=== PATIENT | male | born 1990 | race American Indian/Alaskan Native ===

== ENCOUNTER 2024-09-16 19:27 | Emergency (ER) | payer OTHER ==
[~2024-09-16] VITALS: Ht 193 cm; Wt 100.0 kg
[2024-09-16] MEDS ORDERED: DEPAKOTE250 MG PO (20:46)
[2024-09-16] MEDS ORDERED: BENADRYL ALLERG50 MG PO (20:46)
[2024-09-16] MEDS ORDERED: DEPAKOTE500 MG PO (20:46)
[2024-09-16] MEDS ORDERED: BENADRYL25 MG PO (20:46)
[2024-09-16] MEDS ORDERED: PRAZOSIN HCL1 MG PO (20:47)
[2024-09-16] MEDS ORDERED: EPCLUSA 400 MG1 EACH PO (20:47)
[2024-09-16] MEDS ORDERED: VENTOLIN HFA18 GM INH (20:48)
[2024-09-16] MEDS ORDERED: TRAZODONE HCL100 MG PO (20:48)
[2024-09-16] MEDS ORDERED: COL-RITE100 MG PO (20:48)
[2024-09-16] MEDS ORDERED: MELATONIN5 M2 PO (20:48)
[2024-09-16] MEDS ORDERED: ACETAMINOPHEN 500 MG TAB PO ONE (21:15)
[2024-09-16] MEDS ORDERED: DIVALPROEX SODIUM 125 MG CAP.SPRINK PO ONE (21:30)
[2024-09-16] MEDS ORDERED: DIVALPROEX SODIUM 500 MG TABLET.DR PO ONE ×2 (21:30)
[2024-09-16 22:27] VITALS: BP 127/86
== END 2024-09-16 22:27 | disposition other institution, planned readmission (95) ==
LOC: ED 19:27
DX: S00.12XA Contusion of left eyelid and periocular area, initial encounter (principal); S10.93XA Contusion of unspecified part of neck, initial encounter; Y09 Assault by unspecified means
CPT/HCPCS: 70450; 70486; 72125; 99284-25; A9270

== ENCOUNTER 2024-10-24 14:14 | Emergency (ER) | payer OTHER ==
[~2024-10-24] VITALS: Ht 193 cm; Wt 97.8 kg
[~2024-10-24 14:14] MED LIST: BENADRYL ALLERG50 MG PO; BENADRYL25 MG PO; COL-RITE100 MG PO; DEPAKOTE250 MG PO; DEPAKOTE500 MG PO; EPCLUSA 400 MG1 EACH PO; MELATONIN5 M2 PO; PRAZOSIN HCL1 MG PO; TRAZODONE HCL100 MG PO; VENTOLIN HFA18 GM INH
[2024-10-24] MEDS ORDERED: ONDANSETRON 4 MG TAB ODT SL ONE (14:30)
[2024-10-24] MEDS ORDERED: HYDROCODONE/APAP 10/325 1 TAB PO ONE (14:30)
[2024-10-24 16:25] VITALS: BP 121/82
== END 2024-10-24 16:25 | disposition home or self-care (01) ==
LOC: ED 14:14
DX: S09.90XA Unspecified injury of head, initial encounter (principal); Y04.0XXA Assault by unarmed brawl or fight, initial encounter; J45.909 Unspecified asthma, uncomplicated; G40.909 Epilepsy, unspecified, not intractable, without status epilepticus; Z88.8 Allergy status to other drugs, medicaments and biological substances; Z79.899 Other long term (current) drug therapy
CPT/HCPCS: 70450; 70486; 72125; 99284-25; A9270

== ENCOUNTER 2024-11-24 11:04 | Emergency (ER) | payer OTHER ==
[~2024-11-24] VITALS: Ht 193 cm; Wt 97.0 kg
[2024-11-24] MEDS ORDERED: ANTIVERT25 M1 PO (11:26)
[2024-11-24 12:46] VITALS: BP 121/84
== END 2024-11-24 12:48 | disposition other institution, planned readmission (95) ==
LOC: ED 11:04
DX: R45.88 Nonsuicidal self-harm (principal); S06.9X9A Unspecified intracranial injury with loss of consciousness of unspecified duration, initial encounter; J45.909 Unspecified asthma, uncomplicated; Z88.6 Allergy status to analgesic agent; Z79.899 Other long term (current) drug therapy; W22.8XXA Striking against or struck by other objects, initial encounter
CPT/HCPCS: 70450; 71045; 72125; 99284-25

== ENCOUNTER 2025-03-11 12:00 | Emergency (ER) | payer OTHER ==
[~2025-03-11] VITALS: Ht 193 cm; Wt 100.4 kg
[~2025-03-11 12:00] MED LIST changes: +ANTIVERT25 M1 PO
[2025-03-11] MEDS ORDERED: SODIUM CHLORIDE 0.9% 1,000 ML IV ONE (12:30)
[2025-03-11 12:55] LABS: BASOPHILS 0.6 % (0.2-1.2); EOSINOPHILS 1.3 % (0.8-7.0); LYMPHOCYTES 24.2 % (21.8-53.1); MCH 32.6 PG (25.7-32.2); MCHC 34.9 g/dL (32.3-36.5); MCV 93.5 fL (79.0-92.2); MONOCYTES 10.4 % (5.3-12.2); NEUTROPHILS 62.9 % (34.0-67.9); RBC 5.09 M/uL (4.63-6.08)
[2025-03-11 13:22] LABS: ALCOHOL, MEDICAL <3 mg/dL (<3); ALT (SGPT) 42 U/L (14-59); AST (SGOT) 33 U/L (15-37); GLOMERULAR FILTRATION RATE,EST 124 mL/min (>60); PROTEIN, TOTAL 8.0 g/dL (6.4-8.2); UREA NITROGEN 14 mg/dL (7-18)
[2025-03-11 13:25] LABS: VALPROIC ACID 17 ug/mL (50-100)
[2025-03-11 13:34] LABS: AMPHETAMINES, URINE NEGATIVE (NEGATIVE); BARBITURATES, URINE NEGATIVE (NEGATIVE); BENZODIAZEPINE, URINE NEGATIVE (NEGATIVE); CANNABINOID, URINE NEGATIVE (NEGATIVE); COCAINE, URINE NEGATIVE (NEGATIVE); ECSTASY, URINE NEGATIVE (NEGATIVE); FENTANYL, URINE NEGATIVE (NEGATIVE); METHADONE, URINE NEGATIVE (NEGATIVE); OPIATES, URINE NEGATIVE (NEGATIVE); OXYCODONE, URINE NEGATIVE (NEGATIVE); PHENCYCLIDINE, URINE NEGATIVE (NEGATIVE)
--- NOTE | 2025-03-12 16:11 | EKG ---
[facility] [address] [facility] [place] [address] Signed Normal sinus rhythm Normal ECG No previous ECGs available Confirmed by Liliana Peck DO ([id number]) on 03/12/2025 4:11:29 PM Electronically Signed By: LILIANA PECK DO 03/12/25 1611 PATIENT NAME: LAQUITA JOY Electrocardiogram DATE OF : 86 PHYSICIAN: LILIANA PECK DO REPORT #: [id number] REPORT IS CONFIDENTIAL AND NOT TO BE RELEASED WITHOUT AUTHORIZATION
== END 2025-03-11 16:00 | disposition home or self-care (01) ==
LOC: ED 12:00
PROVIDERS: Emergency Medicine
DX: T43.222A Poisoning by selective serotonin reuptake inhibitors, intentional self-harm, initial encounter (principal); J45.909 Unspecified asthma, uncomplicated; Z88.8 Allergy status to other drugs, medicaments and biological substances; Z79.899 Other long term (current) drug therapy
CPT/HCPCS: 36415; 80053; 80164; 80307; 83735; 85025; 93005; 93010; 99285; G0480; J7030